=== PATIENT | female | born 1955 | race Caucasian/White ===

== ENCOUNTER 2017-04-10 08:29 | Outpatient (CLI) | payer OTHER | END 2017-04-10 19:20 | disposition home or self-care (01) | LOC: SMA 08:29 | PROVIDERS: ATTEND Family Medicine | DX: N63 Unspecified lump in breast (principal) | CPT/HCPCS: 76641; G0204 ==

== ENCOUNTER 2017-10-23 08:20 | Outpatient (CLI) | payer OTHER | END 2017-10-23 18:52 | disposition home or self-care (01) | LOC: SMA 08:20 | PROVIDERS: ATTEND Family Medicine | DX: N63.0 Unspecified lump in unspecified breast (principal); R92.1 Mammographic calcification found on diagnostic imaging of breast; N60.02 Solitary cyst of left breast; N60.01 Solitary cyst of right breast | CPT/HCPCS: 76641; 77066 ==

== ENCOUNTER 2018-09-29 08:22 | Outpatient (CLI) | payer OTHER | END 2018-09-29 21:15 | disposition home or self-care (01) | LOC: SMA 08:22 | PROVIDERS: ATTEND Physician Assistant Medical | DX: R92.1 Mammographic calcification found on diagnostic imaging of breast (principal); R92.2 Inconclusive mammogram | CPT/HCPCS: 76641; 77066 ==

== ENCOUNTER 2019-04-28 12:52 | Outpatient (CLI) | payer OTHER | END 2019-04-28 17:59 | disposition home or self-care (01) | LOC: SMA 12:52 | PROVIDERS: ATTEND Physician Assistant Medical | DX: R92.1 Mammographic calcification found on diagnostic imaging of breast (principal) | CPT/HCPCS: 76642; 77065 ==

== ENCOUNTER → 2019-09-23 | Outpatient (CLI) | payer OTHER | END | disposition home or self-care (01) | LOC: SMA 08:45 | PROVIDERS: ATTEND Family Medicine | DX: R92.8 Other abnormal and inconclusive findings on diagnostic imaging of breast (principal) | CPT/HCPCS: 76641; 77066 ==

== ENCOUNTER 2020-06-29 08:12 | Outpatient (CLI) | payer OTHER | END 2020-06-29 19:51 | disposition home or self-care (01) | LOC: SMA 08:12 | PROVIDERS: ATTEND General Practice | DX: N60.01 Solitary cyst of right breast (principal); N60.02 Solitary cyst of left breast | CPT/HCPCS: 76641; 77066 ==

== ENCOUNTER 2021-09-29 08:01 | Outpatient (CLI) | payer BC, OTHER | END 2021-09-29 19:23 | disposition home or self-care (01) | LOC: SMA 08:01 | PROVIDERS: ATTEND Family Medicine | DX: N60.01 Solitary cyst of right breast (principal); N60.02 Solitary cyst of left breast; R92.1 Mammographic calcification found on diagnostic imaging of breast; R92.2 Inconclusive mammogram | CPT/HCPCS: 76641; 77066 ==

== ENCOUNTER 2023-10-31 15:42 | Emergency (ER) | payer OTHER ==
[~2023-10-31] VITALS: Ht 167.6 cm; Wt 104.3 kg
[2023-10-31 15:45] VITALS: BP_SYST 152; PULSE 105; RESP 18; TEMP 98.6; O2SAT 95
[2023-10-31] MEDS ORDERED: HYDR-3917 PO (17:23)
== END 2023-10-31 17:34 | disposition home or self-care (01) ==
LOC: SED 15:42
DX: S80.01XA Contusion of right knee, initial encounter (principal); Z79.899 Other long term (current) drug therapy; W18.40XA Slipping, tripping and stumbling without falling, unspecified, initial encounter; Y93.89 Activity, other specified; Y92.89 Other specified places as the place of occurrence of the external cause; Y99.8 Other external cause status
CPT/HCPCS: 70450-TC; 73560-TC; 76376; 99284